=== PATIENT | female | born 1980 | race Caucasian/White ===

== ENCOUNTER 2019-10-12 23:02 | Emergency (ER) | payer OTHER ==
[~2019-10-12] VITALS: Ht 154.9 cm; Wt 56.7 kg
[~2019-10-12 23:02] MED LIST: ACETAMINOPHEN-1 EAC1 PO
[2019-10-12] MEDS ORDERED: XANAX 0.5 MG0.5 M1 PO (23:20)
[2019-10-12 23:34] LABS: ABSOLUTE LYMPHOCYTES 2.2 thou/uL (0.8-5.3); ABSOLUTE MONOCYTES 0.6 thou/uL (0.0-1.2); ABSOLUTE NEUTROPHILS 14.5 thou/uL (1.6-8.1); BASOPHILS 0.3 %; EOSINOPHILS 0.2 %; HEMATOCRIT 43.1 % (37.0-47.0); HEMOGLOBIN 14.9 gm/dL (12.0-15.0); LYMPHOCYTES 12.4 %; MCH 31.9 pg (26.0-34.0); MCHC 34.6 g/dL (28.0-37.0); MONOCYTES 3.7 %; MPV 7.4 fl. (7.2-11.1); NUCLEATED RBCS 0 /100WBC; PLATELET COUNT* 508 thou/uL (150-400); POLYS 83.4 %; RBC 4.69 mil/uL (4.20-5.00); WBC 17.3 thou/uL (4.0-11.0)
[2019-10-12 23:42] LABS: CREATININE 1.2 mg/dL (0.6-1.3); POTASSIUM 3.5 mmol/L (3.5-5.1)
[2019-10-12 23:46] LABS: ALBUMIN 4.6 g/dL (3.4-5.0); TOTAL BILIRUBIN 0.8 mg/dL (<0.1-1.0); TOTAL PROTEIN 8.8 g/dL (6.4-8.2)
[2019-10-13 00:07] LABS: URINE BILIRUBIN NEGATIVE (Negative); URINE BLOOD NEGATIVE (Negative); URINE CLARITY CLEAR; URINE COLOR YELLOW; URINE GLUCOSE-RANDOM NEGATIVE (Negative); URINE KETONES 1+ (Negative); URINE LEUKOCYTES-REFLEX NEGATIVE (Negative); URINE NITRITE-REFLEX NEGATIVE (Negative); URINE PROTEIN 2+ (Negative); URINE SPECIFIC GRAVITY >= 1.030 (1.005-1.030); URINE UROBILINOGEN 0.2 E.U./dl (0.2-1.0)
[2019-10-13 00:33] LABS: CASTS None Seen /LPF (None Seen); MUCUS 0-3 Light strn/LPF (None Seen); SQUAMOUS >10 Many /LPF (0-3)
[2019-10-13 00:34] LABS: BACTERIA-REFLEX >30 Many /HPF (None Seen); CRYSTALS None Seen /LPF (None Seen); URINE RBC None Seen /HPF (0-2); URINE WBC-REFLEX 6-15 Few /HPF (0-5)
[2019-10-13] MEDS ORDERED: ZOFRAN ODT4 MG PO (01:20)
[2019-10-13 02:01] VITALS: BP 112/64
== END 2019-10-13 02:01 | disposition home or self-care (01) ==
LOC: M.ERS 23:02
PROVIDERS: Emergency Medicine
DX: N39.0 Urinary tract infection, site not specified (principal); R11.2 Nausea with vomiting, unspecified; R19.7 Diarrhea, unspecified

== ENCOUNTER 2021-05-31 08:12 | Observation (INO) | payer OTHER ==
[~2021-05-31] VITALS: Ht 154.9 cm; Wt 46.3 kg
[~2021-05-31 08:12] MED LIST changes: +XANAX 0.5 MG0.5 M1 PO; +ZOFRAN ODT4 MG PO
[2021-05-31 08:27] VITALS: BP 163/94
[2021-05-31] MEDS ORDERED: [UNRECOGNIZED DRUG - REMARK] PO (08:31)
[2021-05-31 08:37] LABS: ABSOLUTE BASOPHILS 0.1 thou/uL (0.0-0.2); ABSOLUTE EOSINOPHILS 0.1 thou/uL (0.0-0.7); ABSOLUTE LYMPHOCYTES 2.8 thou/uL (0.8-5.3); ABSOLUTE MONOCYTES 0.6 thou/uL (0.0-1.2); ABSOLUTE NEUTROPHILS 9.3 thou/uL (1.6-8.1); BASOPHILS 0.5 %; EOSINOPHILS 0.4 %; HEMOGLOBIN 14.5 gm/dL (12.0-15.0); MCH 32.7 pg (26.0-34.0); MCHC 34.5 g/dL (28.0-37.0); MCV 94.8 fL (80.0-100.0); MONOCYTES 4.6 %; MPV 7.3 fl. (7.2-11.1); NUCLEATED RBCS 0 /100WBC; PLATELET COUNT* 382 thou/uL (150-400); POLYS 72.5 %; RBC 4.43 mil/uL (4.20-5.00); RDW-CV 12.5 % (10.5-14.5); WBC 12.9 thou/uL (4.0-11.0)
[2021-05-31 09:05] LABS: ALBUMIN 4.4 g/dL (3.4-5.0); MAGNESIUM 1.8 mg/dL (1.8-2.4); TOTAL BILIRUBIN 0.8 mg/dL (<0.1-1.0); TOTAL PROTEIN 7.9 g/dL (6.4-8.2)
[2021-05-31 09:09] LABS: POTASSIUM 2.9 mmol/L (3.5-5.1)
--- NOTE | 2021-05-31 09:17 | EKG ---
[place] [address] ELECTROCARDIOGRAM REPORT Name: LJ AUGUSTIN Room: [facility]#: [id number] Admission: 05/31/21 Attend Phys: Discharge: Date of : 82 Date of Service: 05/31/21821 Report #: [id number] THIS REPORT FOR: //name// [facility] ED Test Date: 2021-05-31 Test Time: 08:22:28 Pat Name: LJ AUGUSTIN Department: Room: Gender: F Chha: [facility] : 1980 Requested By: Gael Roman Order Number: [id number] MD: Petros Cueto Measurements Intervals [place] Rate: 114 P: 71 [place]: 118 QRS: 75 QRSD: 85 T: 22 QT: 324 QTc: 447 Interpretive Statements Sinus tachycardia Minimal ST depression, diffuse leads Baseline wander in lead(s) II,III,aVF,V3,V4 No previous ECG available for comparison Electronically Signed On 05-31-2021 9:17:14 SHEET CUTTER by Petros Cueto [email or web address] <ELECTRONICALLY SIGNED> By: Petros Cueto MD, [facility] 05/31/21916 1 1 Petros Cueto MD, [facility] /EPI
[2021-05-31 15:12] VITALS: BP 122/80
[2021-05-31 15:40] LABS: CALCIUM 8.9 mg/dL (8.5-10.1); CREATININE 0.8 mg/dL (0.6-1.3); POTASSIUM 3.5 mmol/L (3.5-5.1)
[2021-05-31 15:55] VITALS: BP 128/80
--- NOTE | 2021-05-31 16:27 | 2DMMODE ---
[place] [address] 2 D/M-MODE ECHOCARDIOGRAM Name: LJ AUGUSTIN Room: [address] IN .R.#: [id number] Admission: 05/31/21 Attend Phys: Leighann Bueno, Discharge: Date of : 82 Date of Service: 05/31/21 1627 Report #: [id number] THIS REPORT FOR: cc: FAM - No family physician/PCP FAM - No family physician/PCP Petros Cueto MD [facility] ~ APPROVED REPORT Study performed: 05/31/2021 15:40:33 EXAM: Comprehensive 2D, Doppler, and color-flow Echocardiogram Patient Location: In-Patient Room #: 209 Status: routine BSA: 1.42 HR: 104 bpm BP: 120/74 mmHg Rhythm: NSR Other Information Study Quality: Good Indications Chest Pain 2D Dimensions IVSd: 7.46 (7-11mm) LVOT Diam: 19.23 (18-24mm) LVDd: 38.98 mm PWd: 7.40 (7-11mm) LVDs: 22.45 (25-40mm) Aortic Root: 27.26 mm Volumes Left Atrial Volume (Systole) LA ESV Index: 18.50 mL/m2 Aortic Valve AoV Peak Tip.: 1.12 m/s AO Peak Gr.: 5.06 mmHg LVOT Max P.25 mmHg AO Mean Gr.: 2.73 mmHg LVOT Mean P.43 mmHg LVOT Max V: 1.15 m/s AO V2 VTI: 18.29 cm LVOT Mean V: 0.71 m/s AL (VTI): 3.30 cm2 LVOT V1 VTI: 20.78 [place] [address] 2 D/M-MODE ECHOCARDIOGRAM Name: LJ AUGUSTIN Room: [address] [place] .R.#: [id number] Admission: 05/31/21 Attend Phys: Leighann Bueno, Discharge: Date of : 82 Date of Service: 05/31/21 1627 Report #: [id number] Mitral Valve E/A Ratio: 0.82 MV Decel. Time: 178.23 ms MV E Max Tip.: 0.86 m/s MV PHT: 51.69 ms MVA (PHT): 4.26 cm2 TDI E/Lateral E': 4.53 E/Medial E': 5.06 Medial E' Tip.: 0.17 m/s Lateral E' Tip.: 0.19 m/s Pulmonary Valve PV Peak Tip.: 1.00 m/s PV Peak Gr.: 3.99 mmHg Tricuspid Valve RAP Estimate: 5.00 mmHg TR Peak Gr.: 17.27 mmHg RVSP: 22.00 mmHg PA Pressure: 22.00 mmHg Left Ventricle The left ventricle is normal size. There is normal LV segmental wall motion. There is normal left ventricular wall thickness. Left ventricular systolic function is normal. The left ventricular ejection fraction is within the normal range. LVEF is 60-65%. Grade I - abnormal relaxation pattern. Right Ventricle The right ventricle is normal size. The right ventricular systolic function is normal. Atria The left atrium size is normal. The right atrium size is normal. Aortic Valve The aortic valve is normal in structure. No aortic regurgitation is present. There is no aortic valvular stenosis. Mitral Valve The mitral valve is normal in structure. There is no mitral valve regurgitation noted. No evidence of mitral valve stenosis. Tricuspid Valve The tricuspid valve is normal in structure. Trace tricuspid regurgitation. [place] [address] 2 D/M-MODE ECHOCARDIOGRAM Name: LJ AUGUSTIN Room: [address]#: [id number] Admission: 05/31/21 Attend Phys: Leighann Bueno, Discharge: Date of : 82 Date of Service: 05/31/21 1627 Report #: [id number] Pulmonic Valve The pulmonary valve is normal in structure. There is no pulmonic valvular regurgitation. Great Vessels The aortic root is normal in size. IVC is normal in size and collapses >50% with inspiration. Pericardium There is no pericardial effusion. <Conclusion> The left ventricle is normal size. There is normal left ventricular wall thickness. Left ventricular systolic function is normal. The left ventricular ejection fraction is within the normal range. LVEF is 60-65%. Grade I - abnormal relaxation pattern. The right ventricle is normal size. The left atrium size is normal. The aortic valve is normal in structure. The mitral valve is normal in structure. The tricuspid valve is normal in structure. IVC is normal in size and collapses >50% with inspiration. There is no pericardial effusion. There is normal LV segmental wall motion. <ELECTRONICALLY SIGNED> By: Petros Cueto MD, FACC 05/31/21 1627 26 26 Petros Cueto MD, FACC /INF
[2021-05-31 20:39] VITALS: BP 136/85
[2021-05-31] MEDS ORDERED: AMBIEN5 MG PO (23:15)
[2021-06-01] VITALS: BP 123/77
[2021-06-01 04:00] VITALS: BP 130/77
--- NOTE | 2021-06-01 07:50 | NUR ---
PT IS ABLE TO COMMUNICATE HER NEEDS TO STAFF EFFECTIVELY. CURRENT PAIN MEDICATION REGIMEN HAS BEEN ADEQUATE FOR CONTROLLING HER PAIN UP TO 0700 THIS MORNING. CARDIOLOGY FOLLOWING. POSSIBLE DISCHARGE TODAY.
[2021-06-01 08:00] VITALS: BP 129/77
--- NOTE | 2021-06-01 09:53 | NUR ---
Pt is admitted to the hospital with chest pain on 05/31/21. Pt is alert and orientedx3. Pt lives with her two children. Pt was previously independent in ADL's and Mobility. No hx of HH/DME/or SNF. Pt fills her prescriptions at [facility] and reports per PCP is Dr. Can Angeles and she is scheduled to see him on 06/15/21. Pt does not have a DPOA and declined paperwork to complete. CM to continue to follow for discharge planning.
[2021-06-01 11:19] VITALS: BP 137/80
[2021-06-01 11:46] LABS: HEMATOCRIT 40.4 % (37.0-47.0); HEMOGLOBIN 13.8 gm/dL (12.0-15.0); MCH 32.5 pg (26.0-34.0); MCHC 34.1 g/dL (28.0-37.0); MCV 95.4 fL (80.0-100.0); MPV 7.5 fl. (7.2-11.1); RBC 4.23 mil/uL (4.20-5.00); RDW-CV 12.6 % (10.5-14.5); WBC 8.8 thou/uL (4.0-11.0)
[2021-06-01 11:57] LABS: ALBUMIN 3.8 g/dL (3.4-5.0); CALCIUM 8.3 mg/dL (8.5-10.1); CREATININE 0.7 mg/dL (0.6-1.3); MAGNESIUM 1.8 mg/dL (1.8-2.4); POTASSIUM 3.6 mmol/L (3.5-5.1); TOTAL BILIRUBIN 0.8 mg/dL (<0.1-1.0); TOTAL PROTEIN 6.8 g/dL (6.4-8.2)
[2021-06-01] MEDS ORDERED: IBUPROFEN 800800 M1 PO (14:58)
[2021-06-01] MEDS ORDERED: COLCHICINE0.6 MG PO (14:59)
[2021-06-01 15:20] VITALS: BP 137/80
== END 2021-06-01 15:51 | disposition home or self-care (01) ==
LOC: M.ERS 08:12 → M.2W 10:18 → M.TBA-ER 10:18 → M.2W 15:30
PROVIDERS: Emergency Medicine Emergency Medical Services; ADMIT Internal Medicine; ATTEND Internal Medicine
DX: I31.9 Disease of pericardium, unspecified (principal); E87.6 Hypokalemia; D72.829 Elevated white blood cell count, unspecified; Z20.822 Contact with and (suspected) exposure to COVID-19; F41.9 Anxiety disorder, unspecified; Z86.79 Personal history of other diseases of the circulatory system; Z79.899 Other long term (current) drug therapy